=== PATIENT | female | born 1960 | race Caucasian/White ===

== ENCOUNTER 2021-07-03 01:34 | Emergency (ER) | payer SELFPAY ==
[2021-07-03] MEDS ORDERED: ELIQUIS2.5 MG PO (02:19)
[2021-07-03] MEDS ORDERED: ZANAFLEX4 M1 PO (02:25)
[2021-07-03 02:29] LABS: BASOPHIL 1.1 % (0-2); EOSINOPHIL 0.5 % (0-5); HCT 44.6 % (37.0-47.0); HGB 14.6 g/dl (12.5-16.0); LYMPHOCYTE 15.9 % (15-48); MCH 34.4 pg (25.0-31.0); MCHC 32.7 g/dL (32.0-36.0); MCV 104.9 fL (78.0-100.0); MONOCYTE 4.9 % (0-12); NEUTROPHIL 76.7 % (41-80); NRBC 0; PLT 282 K/uL (150-400); RBC 4.25 M/uL (4.20-5.40); RDW 12.3 % (11.5-14.0); WBC 12.7 K/uL (4.0-10.5)
[2021-07-03 02:37] LABS: ALBUMIN 3.7 g/dL (3.4-5.0); BILIRUBIN - TOTAL 0.5 mg/dL (0.2-1.0); BUN/CREAT RATIO (CALC) 10.5 RATIO; CREATININE 0.57 mg/dL (0.51-0.95); GLOBULIN (CALCULATION) 3.3 g/dL; POTASSIUM 3.6 mmol/L (3.5-5.1)
[2021-07-03 08:18] LABS: HCT 41.8 % (37.0-47.0); HGB 14.6 g/dl (12.5-16.0); MCH 34.4 pg (25.0-31.0); MCHC 34.9 g/dL (32.0-36.0); MPV 9.4 fL (6.0-9.5); RBC 4.25 M/uL (4.20-5.40); RDW 12.1 % (11.5-14.0)
[2021-07-03 08:28] LABS: MCV 98.4 fL (78.0-100.0)
== END 2021-07-03 22:00 | disposition other institution (70) ==
LOC: FER 01:34
PROVIDERS: Emergency Medicine; Internal Medicine
DX: I21.4 Non-ST elevation (NSTEMI) myocardial infarction (principal); I11.0 Hypertensive heart disease with heart failure; I50.9 Heart failure, unspecified; J96.01 Acute respiratory failure with hypoxia; F17.210 Nicotine dependence, cigarettes, uncomplicated; Z20.822 Contact with and (suspected) exposure to COVID-19; Z82.49 Family history of ischemic heart disease and other diseases of the circulatory system; Z88.0 Allergy status to penicillin; Z88.2 Allergy status to sulfonamides; Z88.5 Allergy status to narcotic agent
CPT/HCPCS: 36415; 36600; 71045; 71275; 80053; 82803; 83605; 83880; 84484; 85025; 85730; 93005; 94640; 94664; 96365; 96366; 96367; 96368; 96375; J0456; J0692; J1644; J2270; J2543; J2930; J3370; J7030; J7050; Q9967; U0002

== ENCOUNTER 2022-03-01 15:05 | Emergency (ER) | payer OTHER ==
[~2022-03-01 15:05] MED LIST: ELIQUIS2.5 MG PO; ZANAFLEX4 M1 PO
== END 2022-03-01 17:26 | disposition home or self-care (01) ==
LOC: FER 15:05
DX: Z03.821 Encounter for observation for suspected ingested foreign body ruled out (principal); Z28.310 Unvaccinated for COVID-19
CPT/HCPCS: 74018